=== PATIENT | female | born 1975 | race Caucasian/White ===

== ENCOUNTER 2020-05-01 00:40 | Inpatient (IN) | payer OTHER ==
[~2020-05-01] VITALS: Ht 160 cm; Wt 73.5 kg
[2020-05-01 00:49] VITALS: BP 122/77
--- NOTE | 2020-05-01 00:50 | NUR ---
PT AMBULATED TO RESTROOM TO PROVIDE UA.
--- NOTE | 2020-05-01 00:54 | NUR ---
PT TAKEN TO BED 5
--- NOTE | 2020-05-01 01:05 | NUR ---
44 year old female from home presents to the emergency department with c/o 10/10 aching epigastric pain that radiates luq, llq abdomen x 4 days. pt denies any nausea, vomiting or diarrhea. pt denies any injury or trauma to site. respirations are even and unlabored. cbl sounds. normoactive bowel sounds. pt grimacing in pain. grasping to epigastrium. awaiting MSE. pmhx: denies nka negative covid screen. wearing mask.
--- NOTE | 2020-05-01 01:10 | NUR ---
MONICA Villa at bedside evaluating pt.
[2020-05-01 01:24] LABS: BASOPHILS # (AUTO) 0.1 K/uL (0.00-0.22); BASOPHILS % (AUTO) 0.8 % (0.0-2.0); EOSINOPHILS # (AUTO) 0.1 K/uL (0-0.4); EOSINOPHILS % (AUTO) 2.1 % (0.0-4.0); HEMATOCRIT 31.8 % (36-48); HEMOGLOBIN 10.5 g/dL (12.0-16.0); LYMPHOCYTES # (AUTO) 3.7 K/uL (2.5-16.5); LYMPHOCYTES % (AUTO) 52.9 % (20.5-51.1); MEAN CORPUSCULAR HEMOGLOBIN 30 pg (27-31); MEAN CORPUSCULAR HGB CONC 33 g/dL (33-37); MONOCYTES # (AUTO) 0.6 K/uL (0.8-1.0); MONOCYTES % (AUTO) 7.9 % (1.7-9.3); NEUTROPHILS # (AUTO) 2.6 K/uL (1.8-7.7); NEUTROPHILS % (AUTO) 36.3 % (42.2-75.2); PLATELET COUNT (AUTO) 325 K/uL (140-450); RED BLOOD CELL COUNT(AUTO) 3.54 MIL/uL (4.20-5.40); RED CELL DISTRIBUTION WIDTH 13.5 % (11.6-13.7)
--- NOTE | 2020-05-01 01:25 | NUR ---
RT AC pivc initiated. tolerated well.
--- NOTE | 2020-05-01 01:37 | NUR ---
PT TAKEN TO CT
[2020-05-01] MEDS ORDERED: MORPHINE SULFATE 4 MG/ML SYR IVP ONE (01:40)
[2020-05-01 01:41] LABS: ALBUMIN 3.3 g/dL (3.4-5.0); CARBON DIOXIDE 26.7 mmol/L (21-32); CREATININE 0.8 mg/dL (0.6-1.3); POTASSIUM 3.7 mmol/L (3.5-5.1); TOTAL BILIRUBIN 0.4 mg/dL (0.0-1.0)
--- NOTE | 2020-05-01 01:47 | NUR ---
PT RETURNED FROM CT VIA W/C
--- NOTE | 2020-05-01 02:00 | NUR ---
asleep in bed, visible chest rise and fall, no further needs at this time.
[2020-05-01] MEDS ORDERED: NACL 0.9% 1,000 ML IV ONE ×2 (02:40→04:40)
--- NOTE | 2020-05-01 04:15 | NUR ---
pt still asleep in bed. visible chest rise and fall. no further needs at this time. arousable to voice. bed lowest and locked. rails x 2
[2020-05-01] MEDS ORDERED: MORPHINE SULFATE 2 MG/ML SYR IVP PRN (07:20)
[2020-05-01] MEDS ORDERED: MAG SULF 2000 MG/WATER PREMIX 50 ML IV PRN (07:20)
[2020-05-01] MEDS ORDERED: HYDROcodone/APAP 5/325 MG 1 TAB TAB PO PRN (07:20)
[2020-05-01] MEDS: NACL 0.9% 1,000 ML IV SCH ×4 (07:20→23:51)
[2020-05-01] MEDS ORDERED: LORazepam 2 MG/ML VIAL IM/IVP PRN (07:20)
[2020-05-01] MEDS ORDERED: ZOLPIDEM 5 MG TAB PO PRN (07:20)
[2020-05-01] MEDS ORDERED: DOCUSATE SODIUM 100 MG GELCAP PO PRN (07:20)
[2020-05-01] MEDS ORDERED: POTASSIUM CHLORIDE 10 MEQ TABER PO PRN (07:20)
[2020-05-01] MEDS ORDERED: ONDANSETRON 4 MG/2 ML VIAL IM/IVP PRN (07:20)
[2020-05-01] MEDS ORDERED: ACETAMINOPHEN 325 MG TAB PO PRN (07:20)
--- NOTE | 2020-05-01 07:22 | NUR ---
Pt report received from YOSI Hernandes. Transfer of care at this time.
--- NOTE | 2020-05-01 07:52 | NUR ---
AN ORDER FOR A UDS, AND UA IS IN THE SYSTEM. I CALLED LAB AND SPOKE WITH ROBINA. URINE IS STILL AVAILABLE ORDERED LABS WILL BE PROCESSED.
[2020-05-01 08:33] LABS: APPEARANCE,URINE CLOUDY (CLEAR); BILIRUBIN,URINE NEGATIVE (NEGATIVE); BLOOD, URINE 3+ (NEGATIVE); COLOR,URINE RED (YELLOW); LEUKOCYTE ESTERASE ,URINE NEGATIVE (NEGATIVE); NITRITE, URINE POSITIVE (NEGATIVE); PH,URINE 7.5 (5.0-9.0); UGLUCOSE NEGATIVE (NEGATIVE)
[2020-05-01 09:00] LABS: BARBITURATE, URINE NEGATIVE ng/ml (NEG <=200); BENZODIAZEPINE, URINE NEGATIVE ng/mL (NEG <=200); CANNABINOID, URINE NEGATIVE ng/mL (NEG <=50); COCAINE, URINE NEGATIVE ng/mL (NEG <=300); OPIATE, URINE NEGATIVE ng/mL (NEG <=2000); PHENCYCLIDINE SCREEN,URINE NEGATIVE ng/mL (NEG <=25)
[2020-05-01 09:24] LABS: RBC,URINE TOO NUMEROUS TO COUN /HPF (0-5); WBC,URINE 0-5 /HPF (0-5)
--- NOTE | 2020-05-01 09:30 | NUR ---
PT AMBULATED TO RESTROOM WITH STEADY GAIT.
[2020-05-01 09:40] LABS: PROTHROMBIN TIME 9.7 secs (10.8-13.4)
--- NOTE | 2020-05-01 10:22 | NUR ---
PT RESTING IN BED QUIETLY, R/R EQUAL, AND UNLABORED. VSS. BED IN LOW POSITION, SIDE RAIL X1, WILL CONTINUE TO MONITOR.
--- NOTE | 2020-05-01 12:22 | NUR ---
PT APPEARS TO BE SLEEPING IN BED. R/R EQUAL, AND UNLABORED. VSS. BED IN LOW POSITION, SIDE RAIL X1, WILL CONTINUE TO MONITOR.
[2020-05-01 14:10] LABS: CHOL/HDL RATIO 5.1 (1-4.5); MAGNESIUM 2.2 mg/dL (1.8-2.4); PHOSPHORUS 3.4 mg/dL (2.5-4.9); THYROID STIMULATING HORMONE 4.12 uIU/mL (0.34-3.74)
--- NOTE | 2020-05-01 14:27 | NUR ---
PT APPEARS TO BE SLEEPING IN BED. R/R EQUAL, AND UNLABORED. VSS. BED IN LOW POSITION, SIDE RAIL X1, WILL CONTINUE TO MONITOR.
--- NOTE | 2020-05-01 14:55 | NUR ---
PT AMBULATED TO RESTROOM WITH STEADY GAIT. VSS, R/R EQUAL, AND UNLABORED. WILL CONTINUE TO MONITOR.
[2020-05-01] MEDS ORDERED: cefTRIAXone 1,000 MG VIAL ONE (16:48)
--- NOTE | 2020-05-01 16:56 | NUR ---
PT AMBULATED TO BATHROOM WITH STEADY GAIT.
--- NOTE | 2020-05-01 17:06 | NUR ---
Dilcia curiel in [facility], [place] - 05/01/20 at 1709 by MATTHIEU PT CANNOT BE AROUSED TO TALK AT THIS TIME. WILL DO ANOTHER PSYCHIATRIC COUNSELING LATER.
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
--- NOTE | 2020-05-01 18:21 | NUR ---
PT RESTING IN BED QUIETLY, R/R EQUAL, AND UNLABORED. VSS. BED IN LOW POSITION, SIDE RAIL X1, WILL CONTINUE TO MONITOR.
--- NOTE | 2020-05-01 19:13 | NUR ---
Pt report RECEIVED FROM YOSI HERNANDEZ. Transfer of care at this time.
--- NOTE | 2020-05-01 19:32 | NUR ---
PT WILL GO M/S 105 A.
[2020-05-01 20:05] VITALS: BP 116/71
--- NOTE | 2020-05-01 20:05 | NUR ---
ADMITTED A 44F FROM ER. MED SURG PT. CAME BY RJ DUE TO EPIGASTRIC PAIN X3 DAYS RELATED TO DX; PANCREATITIS. AWAKE,ALERT AND ORIENTED X 4. AMBULATORY. SKIN INTACT. WITH IVF INFUSING WELL ON THE RT AC G#20 . ANOTHER IV HL ON THE LT FA G#18. PLAN OF CARE DISCUSSED AND VERBALIZED UNDERSTANDING. DENIES PAIN AT THIS TIME. ORIENTED TO HOSPITAL ROUTINES. BED ON LOW POSITION. SIDE RAILS UP X2 AND CALL LIGHT PLACED WITHIN EASY REACH. INSTRUCTED TO CALL FOR ANY ASSISTANCE NEEDED. WILL F/U ADMIT ORDERS AND WILL CONTINUE TO MONITOR.
--- NOTE | 2020-05-01 20:05 | NUR ---
APatient will be admitted to care of . Admited to [facility]. Will go to room 105A. Belongings list completed. Report to YOSI CARR.
--- NOTE | 2020-05-01 20:30 | NUR ---
PT INSTRUCTED NPO EXCEPT MEDS. VERBALIZED UNDERSTANDING.
--- NOTE | 2020-05-01 22:00 | NUR ---
MADE ROUNDS. PT AWAKE. DENIES ANY PAIN . WILL CONTINUE TO MONITOR.
[2020-05-02 00:43] VITALS: BP 106/42
--- NOTE | 2020-05-02 00:45 | NUR ---
MADE ROUNDS. SLEEPING . NO S/S OF ANY DISCOMFORT NOTED.
--- NOTE | 2020-05-02 02:45 | NUR ---
CHECKED ON PT. ASLEEP. NO S/S OF ANY PAIN NOTED. WILL CONTINUE TO MONITOR.
--- NOTE | 2020-05-02 03:45 | NUR ---
PT UP TO THE BATHROOM. VOIDED AND ON MENSES, IN SMALL AMOUNT. PROVIDED WITH CHANA PADS .
[2020-05-02] MEDS: NACL 0.9% 1,000 ML IV SCH ×3 (05:57→21:05)
[2020-05-02 06:37] LABS: BASOPHILS % (AUTO) 0.4 % (0.0-2.0); EOSINOPHILS # (AUTO) 0.1 K/uL (0-0.4); HEMATOCRIT 31.5 % (36-48); HEMOGLOBIN 10.5 g/dL (12.0-16.0); LYMPHOCYTES # (AUTO) 2.5 K/uL (2.5-16.5); LYMPHOCYTES % (AUTO) 37.6 % (20.5-51.1); MEAN CORPUSCULAR HEMOGLOBIN 30 pg (27-31); MEAN CORPUSCULAR HGB CONC 34 g/dL (33-37); MEAN CORPUSCULAR VOLUME 89.7 fL (80-94); MONOCYTES # (AUTO) 0.4 K/uL (0.8-1.0); MONOCYTES % (AUTO) 6.5 % (1.7-9.3); NEUTROPHILS # (AUTO) 3.7 K/uL (1.8-7.7); NEUTROPHILS % (AUTO) 54.5 % (42.2-75.2); PLATELET COUNT (AUTO) 314 K/uL (140-450); RED BLOOD CELL COUNT(AUTO) 3.51 MIL/uL (4.20-5.40); RED CELL DISTRIBUTION WIDTH 13.5 % (11.6-13.7); WHITE BLOOD COUNT (AUTO) 6.7 K/uL (4.8-10.8)
[2020-05-02 07:07] LABS: T4 (THYROXINE) 9.2 ug/dL (4.5-12.0)
--- NOTE | 2020-05-02 07:15 | NUR ---
ENDORSED PT IN STABLE CONDITION TO AM NURSE FOR CONTINUITY OF CARE.
--- NOTE | 2020-05-02 07:20 | NUR ---
RECEIVED BEDSIDE REPORT FROM NIGHTSHIFT NURSE. PT RESTING IN BED, ABLE TO MAKE NEEDS KNOWN. RESPIRATIONS EVEN AND UNLABORED WITH NO SOB OR RESPIRATORY DISTRESS. SKIN WARM AND DRY TO TOUCH. IV SITE IN RFA 18G AND RAC 20G IS CLEAN, DRY, AND INTACT. SAFETY MEASURES IN PLACE. WILL CONTINUE TO MONITOR
[2020-05-02 07:21] LABS: MAGNESIUM 2.1 mg/dL (1.8-2.4); PHOSPHORUS 2.9 mg/dL (2.5-4.9)
[2020-05-02 07:29] LABS: ANION GAP 13.1 (8-16); CARBON DIOXIDE 24.6 mmol/L (21-32); CREATININE 0.6 mg/dL (0.6-1.3); POTASSIUM 3.7 mmol/L (3.5-5.1)
--- NOTE | 2020-05-02 08:48 | NUR ---
PATIENT HAS BEEN SCREENED AND CATEGORIZED MODERATE NUTRITION RISK. PATIENT WILL BE SEEN WITHIN 3-5 DAYS OF ADMISSION. 05/04/20 05/06/[address]
--- NOTE | 2020-05-02 09:10 | NUR ---
ADMINISTERED SCHED MED PRESCRIBED PER MD ORDER. PT TOLERATED WELL. MEDICATION EDUCATION PERFORMED. PT VERBALIZED UNDERSTANDING. SAFETY MEASURES IN PLACE. WILL CONTINUE TO MONITOR
[2020-05-02] MEDS: LACTOBACILLUS RHAMNOSUS GG 1 EACH CAP PO SCH (09:21)
--- NOTE | 2020-05-02 10:31 | NUR ---
WINDCHILL ADMINISTRATOR NOTE: Patient's Orientation Unable To Assess Information Provided By MARINA MUKHERJEE - Comments SW WAS UNABLE TO MEET PATIENT AT BEDSIDE DUE TO MEDICAL CONDITION. Oracle Developer, Realtionship and Phone Number MARINA SHIELDS [phone] [facility] Power of Roll Forger No Does Patient Have a POLST No Identifying Problems No Social Work Triggers Is A Social Work Consult Needed No Mandate Report Filed No Explanation Of Identifying Problems PATIENT IS A 44-YEAR-OLD FEMALE ADMITTED FOR PANCREATITIS. PATIENT DENIES PMHX. Admitted From Home Pre-Admission Level Of Functioning Status Independent/Ambulatory Prior Resources/Services Used In Last 12 Months No Prior Resources Used Prior DME No Prior DME Used Living Situation Lives With Family House Patient Had Caregiver No Home Support No Caregiver Issues Financial Issues No Known Financial Issue Referral To The Financial Counselor Needed No Factors/Needs No D/C Needs Identified Pt/Rep Participated In Discharge Plan Yes Patient/Family Agress With Discharge Plan Yes Discharge Plan Comments TENTATIVE DISCHARGE PLAN IS FOR PATIENT TO RETURN HOME. DC Plan Status Initiated
--- NOTE | 2020-05-02 11:18 | NUR ---
HOURLY ROUNDING. PT RESTING IN BED, ABLE TO MAKE NEEDS KNOWN. RESPIRATIONS EVEN AND UNLABORED WITH NO SOB OR RESPIRATORY DISTRESS. SKIN WARM AND DRY TO TOUCH. SAFETY MEASURES IN PLACE. WILL CONTINUE TO MONITOR
--- NOTE | 2020-05-02 11:33 | NUR ---
DISCHARGE PLANNING: THIS IS A 44 Y/O FEMALE PATIENT FROM HOME, WHO CAME IN DUE TO EPIGASTRIC PAIN. DENIES ANY PAST MEDICAL HISTORY. INITIAL DIAGNOSIS OF PANCREATITIS. CURRENT LABS INCLUDE WBC 6.7, H/H 10.5/31.5, NA/K 137/3.7, BUN/CREA 7/0.6, LIPASE ON ADMISSION [id number], 969. ON [place]. CT ABD/PELVIS NORMAL. GALLBLADDER US PENDING. NO CONSULTS YET OF THIS TIME. ANTICIPATED DC PLAN BACK TO HOME ONCE STABLE.
--- NOTE | 2020-05-02 17:15 | NUR ---
ADMINISTERED SCHED MED PRESCRIBED PER MD ORDER. PT TOLERATED WELL. SAFETY MEASURES IN PLACE. WILL CONTINUE TO MONITOR
--- NOTE | 2020-05-02 19:20 | NUR ---
ENDORSED AT BEDSIDE FOR CONTINUITY OF CARE. PT IS STABLE
--- NOTE | 2020-05-02 20:00 | NUR ---
NO DISTRESS REPORTED/OBSERVED. IV INTACT/PATENT/INFUSING ORDERED. WILL CONT TO MONITOR PT STATUS.
[2020-05-02 21:41] VITALS: BP 111/83
--- NOTE | 2020-05-03 | NUR ---
VSS. DENIES PAIN. NO DISTRESS REPORTED/OBSERVED. WILL CONT TO MONITOR PT STATUS.
--- NOTE | 2020-05-03 01:50 | NUR ---
IV INTACT/PATENT/INFUSING ORDERED. DENIES PAIN. NO N/V OBSERVED/REPORTED. WILL CONT TO MONITOR PT STATUS.
[2020-05-03] MEDS: NACL 0.9% 1,000 ML IV SCH (05:49)
[2020-05-03 06:59] LABS: BASOPHILS % (AUTO) 0.5 % (0.0-2.0); EOSINOPHILS # (AUTO) 0.1 K/uL (0-0.4); EOSINOPHILS % (AUTO) 0.9 % (0.0-4.0); HEMOGLOBIN 9.9 g/dL (12.0-16.0); LYMPHOCYTES # (AUTO) 2.4 K/uL (2.5-16.5); LYMPHOCYTES % (AUTO) 38.4 % (20.5-51.1); MEAN CORPUSCULAR HEMOGLOBIN 29 pg (27-31); MEAN CORPUSCULAR HGB CONC 33 g/dL (33-37); MONOCYTES # (AUTO) 0.5 K/uL (0.8-1.0); MONOCYTES % (AUTO) 8.1 % (1.7-9.3); NEUTROPHILS # (AUTO) 3.3 K/uL (1.8-7.7); NEUTROPHILS % (AUTO) 52.1 % (42.2-75.2); PLATELET COUNT (AUTO) 323 K/uL (140-450); RED BLOOD CELL COUNT(AUTO) 3.37 MIL/uL (4.20-5.40); RED CELL DISTRIBUTION WIDTH 13.8 % (11.6-13.7); WHITE BLOOD COUNT (AUTO) 6.3 K/uL (4.8-10.8)
--- NOTE | 2020-05-03 07:05 | NUR ---
RECEIVED REPORT FROM COOKER HELPER NURSE FOR CONTINUITY OF CARE. BRITISH SPEAKING PATIENT RESTING IN BED WITH NO ACUTE DISTRESS, AAOX 4, BREATHING EVEN AND UNLABORED. IV FLUID NS RUNNING @ 150 CC/HR. SAFETY MEASURES IN PLACE, WILL FREQUENT CHECK THE PATIENT.
[2020-05-03 07:13] LABS: ANION GAP 11.8 (8-16); CARBON DIOXIDE 25.9 mmol/L (21-32); CREATININE 0.7 mg/dL (0.6-1.3); POTASSIUM 3.7 mmol/L (3.5-5.1)
[2020-05-03 07:25] LABS: MAGNESIUM 2.2 mg/dL (1.8-2.4); PHOSPHORUS 3.3 mg/dL (2.5-4.9)
[2020-05-03 08:00] VITALS: BP 103/61
[2020-05-03] MEDS: LACTOBACILLUS RHAMNOSUS GG 1 EACH CAP PO SCH (09:24)
--- NOTE | 2020-05-03 09:30 | NUR ---
SCHEDULED MED GIVEN, EDUCATION PROVIDED, PATIENT TOLERATED WELL. PATIENT DENIES PAIN. SAFETY MEASURES IN PLACE. WILL CONTINUE TO MONITOR.
--- NOTE | 2020-05-03 11:10 | NUR ---
MADE ROUNDS. PATIENT RESTING IN BED, DENIES PAIN OR SOB, RESPIRATORY EVEN AND UNLABORED. SAFETY MEASURES IN PLACE, WILL CONTINUE TO MONITOR.
== END 2020-05-03 14:45 | disposition home or self-care (01) | DRG 282 ==
LOC: MED 00:40 → MMU 04:42 → MTU 19:41
DX: K85.90 Acute pancreatitis without necrosis or infection, unspecified (principal); N39.0 Urinary tract infection, site not specified; Z68.28 Body mass index [BMI] 28.0-28.9, adult; Z71.3 Dietary counseling and surveillance; Z98.51 Tubal ligation status; E46 Unspecified protein-calorie malnutrition; R31.9 Hematuria, unspecified; E78.1 Pure hyperglyceridemia
CPT/HCPCS: 36415; 76705; 80048; 80053; 80305; 81001; 83036; 83690; 83735; 83880; 84100; 84436; 84443; 85025; 85610; 85730; 87081; 96365; 96375; 99285; J0696; J1644; J2270; J7030; J7060; Q0092

== ENCOUNTER 2022-10-17 11:41 | Emergency (ER) | payer OTHER ==
[~2022-10-17] VITALS: Ht 162.6 cm; Wt 61.0 kg
[2022-10-17 11:55] VITALS: BP 122/75
[2022-10-17] MEDS ORDERED: KETOROLAC 30 MG/ML VIAL IM ONE (12:15)
[2022-10-17 12:48] LABS: APPEARANCE,URINE CLEAR (CLEAR); BILIRUBIN,URINE NEGATIVE (NEGATIVE); BLOOD, URINE 2+ (NEGATIVE); COLOR,URINE YELLOW (YELLOW); LEUKOCYTE ESTERASE ,URINE 1+ (NEGATIVE); NITRITE, URINE NEGATIVE (NEGATIVE); UGLUCOSE NEGATIVE (NEGATIVE)
[2022-10-17 13:04] LABS: OTHER CASTS, URINE None Seen /LPF (None Seen); RBC,URINE 11-20 (MOD) /HPF (0-5)
[2022-10-17] MEDS ORDERED: PYR100 PO (13:04)
[2022-10-17] MEDS ORDERED: CEPH-588 PO (13:04)
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
--- NOTE | 2022-10-17 13:21 | NUR ---
Patient discharged with v/s stable. Written and verbal after care instructions given and explained. Patient alert, oriented and verbalized understanding of instructions. Ambulatory with steady gait. All questions addressed prior to discharge. ID band removed. Patient advised to follow up with PMD. Rx of KEFLEX, PYRIDIUM (SENT) given. Patient educated on indication of medication including possible reaction and side effects. Opportunity to ask questions provided and answered. WORK NOTE GIVEN
[2022-10-17 13:25] VITALS: BP 122/75
[2022-10-19] MEDS ORDERED: CIPR500T4 PO (17:26)
--- NOTE | 2022-10-19 17:40 | NUR ---
LATE ENTRY. RECEIVED POSITIVE URINE CULTURE RESULTS. FORM GIVEN TO DR BERMAN. NEW RX SENT TO PTS PHARMACY. CALLED & SPOKE WITH PT AND INFORMED HER TO STOP KELFEX AND START &FINISH CIPRO. FORM PLACED IN BINDER
== END 2022-10-17 13:21 | disposition home or self-care (01) ==
LOC: MED 11:41
DX: N39.0 Urinary tract infection, site not specified (principal); Z79.899 Other long term (current) drug therapy
CPT/HCPCS: 81001; 81025; 87086; 96372; 99283; J1885

== ENCOUNTER 2023-04-20 14:22 | Emergency (ER) | payer OTHER ==
[~2023-04-20] VITALS: Ht 154.9 cm; Wt 58.1 kg
[~2023-04-20 14:22] MED LIST: CEPH-588 PO; CIPR500T4 PO; PYR100 PO
--- NOTE | 2023-04-20 14:50 | NUR ---
Patient ambulated to bed 8.
--- NOTE | 2023-04-20 14:55 | NUR ---
Patient ambulated to restroom.
[2023-04-20 14:56] VITALS: BP 114/70; PULSE 81; RESP 17; TEMP 97.4; O2SAT 98
--- NOTE | 2023-04-20 15:02 | NUR ---
Dilcia curiel in [facility] - 04/20/23 at 1507 by [id number] Patient discharged with v/s stable. Written and verbal after care instructions given and explained to parent/guardian. Parent/Guardian verbalized understanding. Ambulatorysteady gait. All questions addressed prior to discharge. Advised to follow up with PMD.
--- NOTE | 2023-04-20 15:07 | NUR ---
Dr. Diaz evaluating patient at bedside.
[2023-04-20] MEDS ORDERED: LIDOCAINE 5% 1 EA PATCH TP ONE (15:25)
[2023-04-20] MEDS ORDERED: ACETAMINOPHEN EXTRA STRENGTH 500 MG TAB PO ONE (15:25)
[2023-04-20] MEDS ORDERED: KETOROLAC 30 MG/ML VIAL IM ONE (15:25)
[2023-04-20] MEDS ORDERED: CYCL-711 PO (15:46)
[2023-04-20] MEDS ORDERED: IBUP-2213 PO (15:46)
[2023-04-20] MEDS ORDERED: LID5T TP (15:46)
[2023-04-20 16:07] VITALS: BP 100/54; PULSE 65; RESP 18; TEMP 97.5; O2SAT 98
--- NOTE | 2023-04-20 16:07 | NUR ---
Patient's pain is decreasing patient is ready to go home.
--- NOTE | 2023-04-20 16:07 | NUR ---
Patient discharged with v/s stable. Written and verbal after care instructions given. Patient alert, oriented and verbalized understanding of instructions. Ambulatory with steady gait. All questions addressed prior to discharge. ID band removed. Patient advised to follow up with PMD. Rx of Flexeril, Lidocaine and Ibuprofen given. Opportunity to ask questions provided and answered.
--- NOTE | 2023-04-20 16:19 | NUR ---
The patient's care was reviewed and supervised by [facility], RN.
== END 2023-04-20 16:19 | disposition home or self-care (01) ==
LOC: MED 14:22
DX: M54.42 Lumbago with sciatica, left side (principal); Z79.899 Other long term (current) drug therapy; Z79.1 Long term (current) use of non-steroidal anti-inflammatories (NSAID); Z79.2 Long term (current) use of antibiotics
CPT/HCPCS: 81002; 81025; 96372; 99283; J1885